=== PATIENT | female | born 1990 | race Caucasian/White ===

== ENCOUNTER 2017-04-05 13:33 | Emergency (ER) | payer MEDICAID ==
[~2017-04-05] VITALS: Ht 167.6 cm; Wt 89.4 kg
[2017-04-05 13:38] VITALS: BP 143/113
--- NOTE | 2017-04-05 14:14 | NUR ---
Patient transferred to bed 7 via wheelchair by tech. RN evaluating patient at bedside.
[2017-04-05] MEDS ORDERED: KETOROLAC 60 MG/2 ML VIAL IM ONE (14:15)
[2017-04-05] MEDS ORDERED: ONDANSETRON 4 MG ODT PO ONE (14:15)
--- NOTE | 2017-04-05 14:20 | NUR ---
PATIENT BIB FAMILY C/O LEFT UPPER QUADRANT ABDOMINAL PAIN WITH N/V AND DIARRHEA X 5 DAYS AGO.SKIN IS PINK/WARM/DRY; AAOX4 WITH EVEN AND STEADY GAIT; LUNGS CLEAR BL; HR EVEN AND REGULAR; PT DENIES ANY FEVER, CP, SOB, OR COUGH AT THIS TIME; PATIENT STATES PAIN OF 8/10 AT THIS TIME; PATIENT POSITIONED FOR COMFORT; HOB ELEVATED; BEDRAILS UP X2; BED DOWN. ER MD MADE AWARE OF PT STATUS.
[2017-04-05] MEDS ORDERED: MORPHINE SULFATE 4 MG/ML SYR IVP ONE (14:55)
[2017-04-05] MEDS ORDERED: ONDANSETRON 4 MG/2 ML VIAL IVP ONE (14:55)
--- NOTE | 2017-04-05 15:20 | NUR ---
PT STILL C/O PAIN;FACIAL GRIMMACING NOTED;ER MD NOTED;
--- NOTE | 2017-04-05 15:42 | NUR ---
Patient discharged with v/s stable. Written and verbal after care instructions given and explained. Patient alert, oriented and verbalized understanding of instructions. Ambulatory with steady gait. All questions addressed prior to discharge. ID band removed. Patient advised to follow up with PMD. Rx of IMODIUM,NORCO,ZOFRAN AND CIPRO given. Patient educated on indication of medication including possible reaction and side effects. Opportunity to ask questions provided and answered.
[2017-04-05 15:44] VITALS: BP 142/95
== END 2017-04-05 15:42 | disposition home or self-care (01) ==
LOC: MED 13:33
DX: R10.12 Left upper quadrant pain (principal); R11.2 Nausea with vomiting, unspecified; R19.7 Diarrhea, unspecified; R50.9 Fever, unspecified; Z90.89 Acquired absence of other organs
CPT/HCPCS: 81002; 81025; 96372; 96374; 96375; 99284; J1885; J2270; J2405; S0119

== ENCOUNTER 2017-05-22 00:20 | Emergency (ER) | payer MEDICAID ==
[~2017-05-22] VITALS: Ht 170.2 cm; Wt 77.1 kg
--- NOTE | 2017-05-22 00:20 | NUR ---
PT NETO BLS. TAKEN TO BED 6
[2017-05-22 00:24] VITALS: BP 139/81
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
--- NOTE | 2017-05-22 00:36 | NUR ---
Dr. Brar evaluating patient at bedside.
[2017-05-22] MEDS ORDERED: LORazepam 2 MG/ML VIAL IM ONE ×2 (00:40→01:00)
[2017-05-22] MEDS ORDERED: diphenhydrAMINE 50 MG/ML VIAL IM ONE (00:40)
[2017-05-22] MEDS ORDERED: HALOPERIDOL IM 5 MG/ML VIAL IM ONE (00:40)
--- NOTE | 2017-05-22 01:27 | NUR ---
Dr. Brar re-evaluating patient at bedside.
--- NOTE | 2017-05-22 01:44 | NUR ---
PT RESTING IN BED. NO ACUTE DISTRESS NOTED. SITTER AT BED SIDE.
--- NOTE | 2017-05-22 03:00 | NUR ---
PT SLEEPING. NO ACUTE DISTRESS NOTED. WILL CONTINUE TO MONITOR.
--- NOTE | 2017-05-22 04:00 | NUR ---
PT SLEEPING AT THIS TIME. NO ACUTE DISTRESS NOTED. WILL CONTINUE TO MONITOR.
--- NOTE | 2017-05-22 05:00 | NUR ---
PT SLEEPING AND VS STABLE. WILL CONTINUE TO MONITOR
--- NOTE | 2017-05-22 06:00 | NUR ---
PT SLEEPING AND VS STABLE. WILL CONTINUE TO MONITOR.
--- NOTE | 2017-05-22 07:24 | NUR ---
REPORT GIVEN TO MORNING RN. PT SLEEPING AT THIS TIME VS STABLE.
--- NOTE | 2017-05-22 08:32 | NUR ---
PT ATTEMPTED TO BE WALKED BY JUAN GAYLE, PT HAS UNSTABLE GAIT, WALK BACK TO BED, WILL CONTINUE TO MONITOR
--- NOTE | 2017-05-22 09:20 | NUR ---
PT SLEEPING COMFORTABLY, NO C/O PAIN OR ACUTE DISTRESS NOTED AT THIS TIME, VSS, WILL CONTINUE TO MONITOR
--- NOTE | 2017-05-22 09:27 | NUR ---
PT ATTEMPTED TO WALK BY JUAN GAYLE, PT STILL SLEEPY WITH UNSTEADY GAIT, PLACED BACK ON BED, WILL CONTINUE TO MONITOR
--- NOTE | 2017-05-22 09:51 | NUR ---
PT WAS ABLE TO AMBULATE WITH STEADY GAIT TO THE RESTROO, [place] [employer] NOTIFIED BY JUAN NEWSOME,
--- NOTE | 2017-05-22 10:23 | NUR ---
TWO [place] [employer] AT BEDSIDE; PER CONVERSATION BY JUAN NEWSOME TO PT'S GIRLFRIEND KERVIN, BELONGINGS GIVEN LAST NIGHT TO [place] [employer], PANTS PROVIDED TO PT FROM SECURITY, PT AMBULATORY HANDCUFFED TAKEN BY JAC PARMAR
--- NOTE | 2017-05-22 10:28 | NUR ---
Patient discharged with v/s stable. Written and verbal after care instructions given and explained. Patient verbalized understanding. Ambulatory with in custody. All questions addressed prior to discharge. Advised to follow up with PMD.
[2017-05-22 10:29] VITALS: BP 102/61
== END 2017-05-22 10:28 ==
LOC: MED 00:20
DX: Z02.89 Encounter for other administrative examinations (principal); R41.82 Altered mental status, unspecified; F10.129 Alcohol abuse with intoxication, unspecified; F91.9 Conduct disorder, unspecified
CPT/HCPCS: 96372; 99284; J1200; J1630; J2060

== ENCOUNTER 2019-07-20 23:14 | Emergency (ER) | payer MEDICAID ==
[~2019-07-20] VITALS: Ht 170.2 cm; Wt 83.0 kg
[2019-07-20 23:30] VITALS: BP 11/76
--- NOTE | 2019-07-20 23:39 | NUR ---
PT AMBULATED TO LOBBY WITH VSS
--- NOTE | 2019-07-21 00:35 | NUR ---
PT AMBULATED TO ER BED 03
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
[2019-07-21] MEDS ORDERED: LIDOCAINE/EPI 1% 1:100000 20 ML VIAL INJ ONE (01:25)
[2019-07-21] MEDS ORDERED: LIDOCAINE/EPI 2% 1:100000 20 ML VIAL INJ ONE (01:29)
[2019-07-21] MEDS ORDERED: LIDOCAINE/EPI MPF 2%1:200000 10 ML VIAL INJ ONE (01:30)
--- NOTE | 2019-07-21 01:42 | NUR ---
gave lidocaine/epi mpf 2% to md edmondson per procedure to admin.
--- NOTE | 2019-07-21 01:48 | NUR ---
noadhere dressing and coflex applied by alexi kinney.
[2019-07-21] MEDS ORDERED: cefTRIAXone 1,000 MG VIAL ONE (01:55)
[2019-07-21] MEDS ORDERED: cefTRIAXone 1,000 MG in LIDOCAINE MPF 1% 2.1 ML IM ONE (01:55)
[2019-07-21] MEDS ORDERED: LIDOCAINE MPF 1% 5 ML ONE (01:55)
--- NOTE | 2019-07-21 02:05 | NUR ---
admin rochepin in xylocaine im route.
[2019-07-21 02:17] VITALS: BP 111/76
--- NOTE | 2019-07-21 02:17 | NUR ---
dr edmondson did discharge teaching and med education on pt. all questions and concerns were answered.
== END 2019-07-21 02:17 | disposition home or self-care (01) ==
LOC: MED 23:14
DX: S60.351A Superficial foreign body of right thumb, initial encounter (principal); W45.8XXA Other foreign body or object entering through skin, initial encounter; Y93.89 Activity, other specified; Y92.89 Other specified places as the place of occurrence of the external cause; Y99.8 Other external cause status
CPT/HCPCS: 64450; 96372; 99284; J0696; J2001; 99283

== ENCOUNTER 2021-01-26 22:08 | Emergency (ER) | payer MEDICAID ==
[~2021-01-26] VITALS: Ht 170.2 cm; Wt 93.4 kg
[2021-01-26 22:37] VITALS: BP 147/81
[2021-01-27] MEDS ORDERED: BUPIVACAINE-MPF 0.5% 30 ML VIAL INJ ONE (01:00)
[2021-01-27] MEDS ORDERED: HYDROcodone/APAP 5/325 MG 1 TAB TAB PO ONE (01:00)
[2021-01-27] MEDS ORDERED: CLIN300C6 PO (03:19)
[2021-01-27] MEDS ORDERED: HYDR-5080 PO ×2 (03:37→03:40)
[2021-01-27 03:42] VITALS: BP 147/81
== END 2021-01-27 03:42 | disposition home or self-care (01) ==
LOC: MED 22:08
DX: K04.01 Reversible pulpitis (principal)
CPT/HCPCS: 99283; J3490

== ENCOUNTER 2021-03-18 01:35 | Emergency (ER) | payer MEDICAID ==
[~2021-03-18] VITALS: Ht 170.2 cm; Wt 95.3 kg
[~2021-03-18 01:35] MED LIST: CLIN300C6 PO; HYDR-5080 PO
[2021-03-18 02:10] VITALS: BP 116/79
--- NOTE | 2021-03-18 02:13 | NUR ---
TO LOBBY A/W BED AMBULATORY
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
--- NOTE | 2021-03-18 02:40 | NUR ---
TO ER BED 1
[2021-03-18] MEDS ORDERED: LIDOCAINE MPF 1% 10 MG/ML VIAL INJ ONE (02:45)
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
[2021-03-18] MEDS ORDERED: CEPH-588 PO (03:33)
--- NOTE | 2021-03-18 03:45 | NUR ---
dPatient discharged with v/s stable. Written and verbal after care instructions given and explained. Patient alert, oriented and verbalized understanding of instructions. Ambulatory with steady gait. All questions addressed prior to discharge. ID band removed. Patient advised to follow up with PMD. Rx of keflex given. Patient educated on indication of medication including possible reaction and side effects. Opportunity to ask questions provided and answered.
[2021-03-18] MEDS ORDERED: ACETAMINOPHEN EXTRA STRENGTH 500 MG TAB ONE (03:58)
[2021-03-18] MEDS ORDERED: ACETAMINOPHEN EXTRA STRENGTH 500 MG TAB PO ONE (04:00)
[2021-03-18 06:36] VITALS: BP 123/60
== END 2021-03-18 03:45 | disposition home or self-care (01) ==
LOC: MED 01:35
DX: S70.351A Superficial foreign body, right thigh, initial encounter (principal); Z79.899 Other long term (current) drug therapy; W45.8XXA Other foreign body or object entering through skin, initial encounter; Y93.89 Activity, other specified; Y92.89 Other specified places as the place of occurrence of the external cause; Y99.8 Other external cause status
CPT/HCPCS: 99283; J2001

== ENCOUNTER 2021-04-07 01:05 | Emergency (ER) | payer MEDICAID ==
[~2021-04-07] VITALS: Ht 170.2 cm; Wt 98.9 kg
[~2021-04-07 01:05] MED LIST changes: +CEPH-588 PO
[2021-04-07 01:12] VITALS: BP 136/95
[2021-04-07] MEDS ORDERED: MORPHINE SULFATE 4 MG/ML SYR IM ONE ×2 (02:00→03:55)
[2021-04-07] MEDS ORDERED: KETOROLAC 60 MG/2 ML VIAL IM ONE (02:00)
--- NOTE | 2021-04-07 02:02 | NUR ---
PT AMBULATED TO BED #8
--- NOTE | 2021-04-07 02:10 | NUR ---
COVERING PRIMARY RN FOR LUNCH RELIEF. SEE COMPLETE ASSESSMENT
--- NOTE | 2021-04-07 02:13 | NUR ---
PT TAKEN TO CT VIA HARISH
--- NOTE | 2021-04-07 02:29 | NUR ---
PT RETURNED FROM CT VIA [facility]
--- NOTE | 2021-04-07 02:55 | NUR ---
PATIENT LAYING IN BED IN L LATERAL POSITION W X1 SIDE RAIL UP. BREATHING EVEN AND UNLABORED. PATIENT REPORTS ONGOING 10/10 LOWER BACK PAIN W SPASM TO R LEG. PATIENT REPORTS SHE IS ABLE TO AMBULATE BUT W PAIN . PATIENT DENIES LOSS OF CONTROL OVER BOWEL OR BLADDER. DENIES FEVERS, NAUSEA OR DIZZYNESS. PROVIDED PATIENT WITH FOLDED BLANKETS TO REST HER BACK ON FOR COMFORT MEASURES. WILL RE-ASSESS PAIN.
--- NOTE | 2021-04-07 03:55 | NUR ---
PATIENT C/O OF 10 LOWER BACK PAIN. ERMD AWARE. NEW ORDERS FOR PAIN MED PER ERMD.
[2021-04-07] MEDS ORDERED: NAPR-54 PO (04:00)
[2021-04-07 04:22] VITALS: BP 127/64
--- NOTE | 2021-04-07 04:22 | NUR ---
Patient discharged with v/s stable BY . Written and verbal after care instructions given and explained BY . Patient alert, oriented and verbalized understanding of instructions. Wheel Chair Assisted TO LOBBY, AMBULATORY with steady gait TO CAR. All questions addressed prior to discharge. ID band removed. Patient advised to follow up with PMD. Rx of NAPROXEN given. Patient educated on indication of medication including possible reaction and side effects. Opportunity to ask questions provided and answered BY .
== END 2021-04-07 04:22 | disposition home or self-care (01) ==
LOC: MED 01:05
DX: S33.5XXA Sprain of ligaments of lumbar spine, initial encounter (principal); M48.061 Spinal stenosis, lumbar region without neurogenic claudication; M48.08 Spinal stenosis, sacral and sacrococcygeal region; Z79.899 Other long term (current) drug therapy; Z90.49 Acquired absence of other specified parts of digestive tract; W18.30XA Fall on same level, unspecified, initial encounter; Y93.89 Activity, other specified; Y92.89 Other specified places as the place of occurrence of the external cause; Y99.8 Other external cause status
CPT/HCPCS: 72131; 96372; 99284; J1885; J2270

== ENCOUNTER 2021-04-27 23:28 | Emergency (ER) | payer MEDICAID ==
[~2021-04-27] VITALS: Ht 170.2 cm; Wt 97.5 kg
[~2021-04-27 23:28] MED LIST changes: -CLIN300C6 PO; +CLIN300C61 PO; +NAPR-54 PO
[2021-04-27 23:33] VITALS: BP 133/92
--- NOTE | 2021-04-27 23:33 | NUR ---
TO BED VIA WHEELCHAIR
[2021-04-28] MEDS ORDERED: NACL 0.9% 1,000 ML IV ONE (00:10)
[2021-04-28] MEDS ORDERED: ONDANSETRON 4 MG/2 ML VIAL IVP ONE (00:10)
[2021-04-28] MEDS ORDERED: MORPHINE SULFATE 4 MG/ML SYR IVP ONE (00:10)
--- NOTE | 2021-04-28 00:15 | NUR ---
BLOOD DRAWN VIA IV START AND HANDED TO KENYATTA HOOKER OFF.
[2021-04-28 00:31] LABS: BASOPHILS % (AUTO) 0.4 % (0.0-2.0); EOSINOPHILS % (AUTO) 0.2 % (0.0-4.0); HEMATOCRIT 43.6 % (36-48); HEMOGLOBIN 14.9 g/dL (12.0-16.0); LYMPHOCYTES # (AUTO) 1.6 K/uL (2.5-16.5); LYMPHOCYTES % (AUTO) 14.4 % (20.5-51.1); MEAN CORPUSCULAR HEMOGLOBIN 32 pg (27-31); MEAN CORPUSCULAR HGB CONC 34 g/dL (33-37); MEAN CORPUSCULAR VOLUME 93.6 fL (80-94); MONOCYTES # (AUTO) 0.5 K/uL (0.8-1.0); MONOCYTES % (AUTO) 4.6 % (1.7-9.3); NEUTROPHILS # (AUTO) 8.9 K/uL (1.8-7.7); NEUTROPHILS % (AUTO) 80.4 % (42.2-75.2); PLATELET COUNT (AUTO) 181 K/uL (140-450); RED BLOOD CELL COUNT(AUTO) 4.66 MIL/uL (4.20-5.40); RED CELL DISTRIBUTION WIDTH 12.3 % (11.6-13.7); WHITE BLOOD COUNT (AUTO) 11.1 K/uL (4.8-10.8)
--- NOTE | 2021-04-28 00:45 | NUR ---
IV removed, catheter intact and site benign. Applied folded 4x4 gauze and tape to stop bleeding.
--- NOTE | 2021-04-28 00:46 | NUR ---
ULTRASOUND AT BEDSIDE.
[2021-04-28 00:51] LABS: ANION GAP 14.4 (8-16); CARBON DIOXIDE 26.4 mmol/L (21-32); CREATININE 0.7 mg/dL (0.6-1.3); POTASSIUM 3.8 mmol/L (3.5-5.1); TOTAL BILIRUBIN 0.4 mg/dL (0.0-1.0)
--- NOTE | 2021-04-28 01:04 | NUR ---
PATIENT PAIN STILL A 10/10 PAIN PULSATING PAIN
--- NOTE | 2021-04-28 01:08 | NUR ---
CALLED XRAY REGARDING PATIENT XRAY. PATIENT WILLING TO SIGN FORM ABOUT NOT BEING WITHOUT URINE
--- NOTE | 2021-04-28 01:55 | NUR ---
PT C/O UNRESOLVED PAIN. DR. BASS MADE AWARE. VERBAL ORDER FRO TORADOL 30MG IVP GIVEN, ORDER CARRIED OUT.
[2021-04-28] MEDS ORDERED: KETOROLAC 30 MG/ML VIAL ONE (01:59)
[2021-04-28] MEDS ORDERED: KETOROLAC 30 MG/ML VIAL IVP ONE (02:00)
--- NOTE | 2021-04-28 02:20 | NUR ---
Provided patient with 2 boxes of COLE
[2021-04-28] MEDS ORDERED: CLINDAMYCIN 900 MG in DEXTROSE 5% 100 ML IV ONE ×2 (02:40→03:05)
--- NOTE | 2021-04-28 02:44 | NUR ---
ermd at bedside for re-examination of patient.
[2021-04-28] MEDS ORDERED: CLINDAMYCIN 900 MG/6 ML VIAL IV ONE (03:21)
[2021-04-28] MEDS ORDERED: ACET-8386 PO (03:21)
[2021-04-28] MEDS ORDERED: CLIN150C1 PO (03:21)
[2021-04-28] MEDS ORDERED: IBUP-2213 PO (03:21)
--- NOTE | 2021-04-28 03:40 | NUR ---
PT ASSISTED TO RESTROOM VIA W.C.
[2021-04-28] MEDS ORDERED: HYDROcodone/APAP 10/325 MG 1 TAB TAB PO ONE (04:20)
--- NOTE | 2021-04-28 05:03 | NUR ---
IV removed, catheter intact and site benign. Applied folded 4x4 gauze and tape to stop bleeding.
[2021-04-28 05:06] VITALS: BP 126/76
--- NOTE | 2021-04-28 05:06 | NUR ---
Patient discharged with v/s stable. Written and verbal after care instructions given and explained. Patient alert, oriented and verbalized understanding of instructions. Wheel Chair Assisted with by EMT. All questions addressed prior to discharge. ID band removed. Patient advised to follow up with PMD. Rx of hydrocodon-acetaminophen 5-325, Cleocin hcl, and ibuprofen given. Patient educated on indication of medication including possible reaction and side effects. Opportunity to ask questions provided and answered.
== END 2021-04-28 05:06 | disposition home or self-care (01) ==
LOC: MED 23:28
DX: L03.116 Cellulitis of left lower limb (principal); Z90.49 Acquired absence of other specified parts of digestive tract; W86.8XXA Exposure to other electric current, initial encounter; Y93.89 Activity, other specified; Y92.89 Other specified places as the place of occurrence of the external cause; Y99.8 Other external cause status
CPT/HCPCS: 36415; 73700; 80053; 82550; 84484; 85025; 93005; 93971; 96361; 96365; 96375; 99285; J1885; J2270; J2405; J3490; J7030; Q0092

== ENCOUNTER 2021-04-29 12:06 | Inpatient (IN) | payer MEDICAID, SELFPAY ==
[~2021-04-29] VITALS: Ht 170.2 cm; Wt 97.5 kg
[~2021-04-29 12:06] MED LIST changes: +ACET-8386 PO; +CLIN150C1 PO; +CLIN300C6 PO; -CLIN300C61 PO; +IBUP-2213 PO
[2021-04-29 12:31] VITALS: BP 117/71
--- NOTE | 2021-04-29 12:47 | NUR ---
Patient W/C assisted to bed 03.
--- NOTE | 2021-04-29 12:52 | NUR ---
Dr. Londono is evaluating patient at bedside
[2021-04-29] MEDS ORDERED: MORPHINE SULFATE 4 MG/ML SYR IVP ONE (12:55)
[2021-04-29] MEDS ORDERED: VANCOMYCIN 1,000 MG in DEXTROSE 5% 250 ML IV ONE (12:55)
[2021-04-29] MEDS ORDERED: NACL 0.9% 1,000 ML IV ONE (12:55)
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
[2021-04-29] MEDS ORDERED: cefTRIAXone 1,000 MG VIAL ONE (13:03)
[2021-04-29] MEDS ORDERED: MORPHINE SULFATE 4 MG/ML SYR ONE (13:04)
--- NOTE | 2021-04-29 13:18 | NUR ---
US tech at bedside
--- NOTE | 2021-04-29 13:28 | NUR ---
Blood cultures and sample collected, handed to CPT Neva at ER bedside.
--- NOTE | 2021-04-29 13:33 | NUR ---
RAD at bedside
[2021-04-29] MEDS ORDERED: VANCOMYCIN 1,000 MG VIAL ONE (13:47)
--- NOTE | 2021-04-29 13:52 | NUR ---
PT SWABBED FOR COVID AND SPECIMEN WALKED TO LAB
[2021-04-29 14:03] LABS: BASOPHILS % (AUTO) 0.3 % (0.0-2.0); EOSINOPHILS # (AUTO) 0.1 K/uL (0-0.4); EOSINOPHILS % (AUTO) 0.6 % (0.0-4.0); HEMATOCRIT 37.4 % (36-48); HEMOGLOBIN 12.9 g/dL (12.0-16.0); LYMPHOCYTES # (AUTO) 1.8 K/uL (2.5-16.5); LYMPHOCYTES % (AUTO) 12.1 % (20.5-51.1); MEAN CORPUSCULAR HEMOGLOBIN 32 pg (27-31); MEAN CORPUSCULAR HGB CONC 34 g/dL (33-37); MEAN CORPUSCULAR VOLUME 92.8 fL (80-94); MONOCYTES % (AUTO) 6.9 % (1.7-9.3); NEUTROPHILS % (AUTO) 80.1 % (42.2-75.2); PLATELET COUNT (AUTO) 134 K/uL (140-450); RED BLOOD CELL COUNT(AUTO) 4.03 MIL/uL (4.20-5.40); RED CELL DISTRIBUTION WIDTH 12.7 % (11.6-13.7)
[2021-04-29 14:25] LABS: ALBUMIN 3.9 g/dL (3.4-5.0); ANION GAP 14.2 (8-16); CARBON DIOXIDE 25.7 mmol/L (21-32); CREATININE 0.7 mg/dL (0.6-1.3); POTASSIUM 3.9 mmol/L (3.5-5.1); TOTAL BILIRUBIN 0.7 mg/dL (0.0-1.0)
[2021-04-29] MEDS ORDERED: KETOROLAC 30 MG/ML VIAL ONE (14:48)
[2021-04-29] MEDS ORDERED: KETOROLAC 30 MG/ML VIAL IVP PRN (14:50)
[2021-04-29] MEDS ORDERED: MORPHINE SULFATE 2 MG/ML SYR IVP PRN (14:50)
--- NOTE | 2021-04-29 15:05 | NUR ---
Patient disconnected from telemetry monitor and IVF and ambulated to restroom with walker.
--- NOTE | 2021-04-29 15:15 | NUR ---
Patient back to bed and playground monitor/IVF continued. Bed locked in lowest position, side rails x 1, call light in reach.
[2021-04-29] MEDS ORDERED: LORazepam 2 MG/ML VIAL IM/IVP PRN (16:10)
[2021-04-29] MEDS ORDERED: ZOLPIDEM 5 MG TAB PO PRN (16:10)
[2021-04-29] MEDS ORDERED: POTASSIUM CHLORIDE 10 MEQ TABER PO PRN (16:10)
[2021-04-29] MEDS ORDERED: ONDANSETRON 4 MG/2 ML VIAL IVP PRN (16:10)
[2021-04-29] MEDS ORDERED: MAG SULF 2000 MG/WATER PREMIX 50 ML IV PRN (16:10)
[2021-04-29] MEDS ORDERED: DOCUSATE SODIUM 100 MG GELCAP PO PRN (16:10)
[2021-04-29] MEDS ORDERED: SODIUM PHOS / POTASSIUM PHOS 1 PKT PDR PO PRN (16:10)
--- NOTE | 2021-04-29 16:15 | NUR ---
Report given to DEMETRIS Perea.
--- NOTE | 2021-04-29 16:15 | NUR ---
Patient will be admitted to care of Dr. Yeung. Admited to Telemetry. Will go to room 105-B Belongings list completed. Report to Price (suri)Leroy RN.
--- NOTE | 2021-04-29 16:20 | NUR ---
RECEIVED PATIENT REPORT FROM ER NURSE. AWAITING FOR PT TO ARRIVE TO THE UNIT
[2021-04-29 16:40] VITALS: BP 119/71
--- NOTE | 2021-04-29 16:40 | NUR ---
RECEIVED PATIENT FROM ER NURSE. PT ADMITTED FOR CELLULITIS LOWER LEFT EXTREMITY. PT IS STABLE, ABLE TO MAKE NEEDS KNOWN. RESPIRATIONS EVEN AND UNLABORED. ON ROOM AIR AND NOT DISTRESS NOTED. SKIN IS WARM, DRY, AND INTACT. IV SITE ON LH 22G SALINE FLUSHED. INTACT AND PATENT. ABD SOFT, FLAT, AND NON-DISTENDED. BOWEL SOUNDS ACTIVE IN ALL QUADRANT. COMPLAINS OF 9/10 LOWER LEG PAIN. WILL MEDICATE ORDERED PLAN OF CARE DISCUSSED. SAFETY PRECAUTION IN PLACE. CALL LIGHT WITHIN REACH. WILL CONTINUE TO MONITOR.
[2021-04-29] MEDS: NACL 0.9% 1,000 ML IV SCH (16:49)
[2021-04-29 16:52] LABS: CHOL/HDL RATIO 2.6 (1-4.5); FREE T4 (FREE THYROXINE) 0.85 ng/dL (0.76-1.46); PHOSPHORUS 3.9 mg/dL (2.5-4.9); THYROID STIMULATING HORMONE 10.89 uIU/mL (0.34-3.74)
[2021-04-29 17:02] LABS: PROTHROMBIN TIME 10.6 secs (10.8-13.4)
[2021-04-29] MEDS: HYDROcodone/APAP 5/325 MG 1 TAB TAB PO PRN (18:08)
[2021-04-29] MEDS ORDERED: VANCOMYCIN PER PHARMACY MC PRN (18:15)
--- NOTE | 2021-04-29 18:33 | NUR ---
DR. QUINONES AT BEDSIDE ASSESSING PATIENT. DISCUSSED CT W/ CONTRAST PROCEDURE WITH PATIENT. PATIENT VERBALIZED UNDERSTANDING. WITNESSED BOTH MD AND PATIENT SIGN CONSENT FORM.
--- NOTE | 2021-04-29 19:00 | NUR ---
INSERTED RAC 20G FOR CT W/ CONTRAST. INTACT AND PATENT. SALINE LOCKED
[2021-04-29 21:00] VITALS: BP 142/78
[2021-04-29] MEDS: PIPERACILLIN/TAZOBACTAM 3.375 GM in DEXTROSE 5% 50 ML IV SCH (21:21)
[2021-04-29] MEDS: MORPHINE SULFATE 2 MG/ML SYR IVP PRN (22:12)
[2021-04-29] MEDS: VANCOMYCIN 1,500 MG in DEXTROSE 5% 500 ML IV SCH (22:39)
[2021-04-29 23:06] VITALS: BP 142/76
[2021-04-30] VITALS: BP 135/72
[2021-04-30] MEDS: HYDROcodone/APAP 5/325 MG 1 TAB TAB PO PRN ×3 (01:56→17:39)
[2021-04-30] MEDS: NACL 0.9% 1,000 ML IV SCH ×3 (03:30→22:10)
--- NOTE | 2021-04-30 03:43 | NUR ---
THE PATIENT WAS ADMITTED FOR LEFT LEG CELLULITIS, , MORPHINE 2 MG IV AND NARCO WAS ADMINISTERED FOR PAIN MANAGEMENT , SHE SLEEPS COMFOTABEL IN HER BED , PATINET WAS ASSITED TO THE BATHROOM. COMFORT AND SAFETY MEASURES ARE PROVIDED.
[2021-04-30 04:04] VITALS: BP 125/78
[2021-04-30] MEDS: PIPERACILLIN/TAZOBACTAM 3.375 GM in DEXTROSE 5% 50 ML IV SCH ×3 (05:31→20:47)
[2021-04-30] MEDS: ACETAMINOPHEN 325 MG TAB PO PRN ×3 (05:31→23:20)
[2021-04-30 06:29] LABS: BASOPHILS % (AUTO) 0.3 % (0.0-2.0); EOSINOPHILS # (AUTO) 0.2 K/uL (0-0.4); EOSINOPHILS % (AUTO) 1.8 % (0.0-4.0); HEMATOCRIT 35.1 % (36-48); HEMOGLOBIN 11.9 g/dL (12.0-16.0); LYMPHOCYTES # (AUTO) 1.4 K/uL (2.5-16.5); LYMPHOCYTES % (AUTO) 15.8 % (20.5-51.1); MEAN CORPUSCULAR HEMOGLOBIN 32 pg (27-31); MEAN CORPUSCULAR HGB CONC 34 g/dL (33-37); MEAN CORPUSCULAR VOLUME 94.5 fL (80-94); MONOCYTES # (AUTO) 0.9 K/uL (0.8-1.0); MONOCYTES % (AUTO) 10.1 % (1.7-9.3); NEUTROPHILS # (AUTO) 6.6 K/uL (1.8-7.7); PLATELET COUNT (AUTO) 133 K/uL (140-450); RED BLOOD CELL COUNT(AUTO) 3.71 MIL/uL (4.20-5.40); RED CELL DISTRIBUTION WIDTH 12.6 % (11.6-13.7); WHITE BLOOD COUNT (AUTO) 9.1 K/uL (4.8-10.8)
[2021-04-30 07:00] LABS: ALBUMIN 3.1 g/dL (3.4-5.0); CARBON DIOXIDE 26.7 mmol/L (21-32); CREATININE 0.6 mg/dL (0.6-1.3); POTASSIUM 3.7 mmol/L (3.5-5.1); TOTAL BILIRUBIN 0.3 mg/dL (0.0-1.0)
--- NOTE | 2021-04-30 07:21 | NUR ---
RECEIVED REPORT FROM QUARANTINE INSPECTOR NURSE FOR CONTINUITY OF CARE, POC DISCUSSED. PT IS STABLE IN BED WITH NO ACUTE S/S OF DISTRESS. PT IS ALERT AND ORIENTED X4, ON ROOM AIR WITH CHEST RISING AND FALLING EVEN AND UNLABORED. PT IS ON TELE MONITOR. LEFT LOWER EXTREMITY MARKED. PT HAS A RIGHT AC 20 G AND A LEFT HAND 22G RUNNING NS @ 100. ALL SAFETY MEASURES IN PLACE, CALL LIGHT WITHIN REACH. WILL CONTINUE TO MONITOR.
[2021-04-30 08:00] VITALS: BP 111/61
--- NOTE | 2021-04-30 10:04 | NUR ---
CATHLEEN MEDICATION ADMINISTERED PT EDUCATION PROVIDED. PT TOLERATED. PT IV IS PATENT AND INTACT. PRN PAIN MEDICATION ADMINISTERED PER MD ORDER.
[2021-04-30] MEDS: VANCOMYCIN 1,500 MG in DEXTROSE 5% 500 ML IV SCH ×2 (10:06→21:36)
--- NOTE | 2021-04-30 10:45 | NUR ---
PATIENT HAS BEEN SCREENED AND CATEGORIZED LOW NUTRITION RISK. PATIENT WILL BE SEEN WITHIN 7 DAYS OF ADMISSION. 05/07/21 REVIEWED BY JENNIFER ALBARADO RD
[2021-04-30 12:00] VITALS: BP 99/47
--- NOTE | 2021-04-30 13:48 | NUR ---
DR. PASCAL STATES NO SURGICAL INTERVENTION AT THIS TIME, DIET SWITCHED TO REGULAR PER MD ORDER
[2021-04-30] MEDS: MORPHINE SULFATE 2 MG/ML SYR IVP PRN ×2 (14:19→19:58)
--- NOTE | 2021-04-30 14:19 | NUR ---
PT BLOOD PRESSURE 129/89, PT REPORTS SEVERE PAIN, WILL MEDICATE PER MD ORDER.
[2021-04-30 14:41] LABS: APPEARANCE,URINE CLEAR (CLEAR); BILIRUBIN,URINE NEGATIVE (NEGATIVE); BLOOD, URINE 2+ (NEGATIVE); COLOR,URINE YELLOW (YELLOW); LEUKOCYTE ESTERASE ,URINE NEGATIVE (NEGATIVE); NITRITE, URINE NEGATIVE (NEGATIVE); UGLUCOSE NEGATIVE (NEGATIVE)
--- NOTE | 2021-04-30 14:53 | NUR ---
DC PLANNING: PATIENT HAS AN ORDER TO TRANSFER TO HIGHER LEVEL OF CARE, CALLED [place] KAUSHAL WYNN [phone] EXT [phone] LEFT A MESSAGE AND FAXED TO [facility] [phone] . FAXED TO [facility] AND [facility] . CM TO FOLLOW Addendum: 04/30/21 at 1700 by Kasie Perry RN DC PLANNING: RECEIVED A CALL FROM [facility] UPDATED PT'S CLINICAL PER RELL FERNANDO FROM [facility]. CALLED [facility] SPOKE WITH TIANNA OSHEA STATED [facility] IS NOT CONTRACTED, ONCE THEY RECEIVED THE PAPERWORK THEIR SHOCHET WILL REVIEW IT AND WILL DECIDE. DAYO TO FOLLOW
[2021-04-30 14:58] LABS: BARBITURATE, URINE NEGATIVE ng/ml (NEG <=200); BENZODIAZEPINE, URINE NEGATIVE ng/mL (NEG <=200); CANNABINOID, URINE POSITIVE ng/mL (NEG <=50); COCAINE, URINE NEGATIVE ng/mL (NEG <=300); OPIATE, URINE POSITIVE ng/mL (NEG <=2000); PHENCYCLIDINE SCREEN,URINE NEGATIVE ng/mL (NEG <=25)
[2021-04-30 15:11] LABS: RBC,URINE 20-50 /HPF (0-5); WBC,URINE 0-5 /HPF (0-5)
[2021-04-30 16:00] VITALS: BP 103/61
--- NOTE | 2021-04-30 17:41 | NUR ---
PRN PAIN MEDICATION ADMINISTERED PER MD ORDER, PT EDUCATION PROVIDED. IV INTACT. ALL NEEDS MET, CALL LIGHT WITHIN REACH. CALL LIGHT WITHIN REACH.
--- NOTE | 2021-04-30 18:10 | NUR ---
PT PROVIDED WITH WIPES PER PT REQUEST. ALL SAFETY MEASURES IN PLACE, CALL LIGHT WITHIN REACH. WILL CONTINUE TO MONITOR.
--- NOTE | 2021-04-30 19:00 | NUR ---
PT HAS BEEN ENDORSED TO VOCATIONAL SERVICES SPECIALIST NURSE FOR CONTINUITY OF CARE, POC DISCUSSED. PT IN STABLE CONDITION.
--- NOTE | 2021-04-30 19:15 | NUR ---
RECEIVED REPORT AT BEDSIDE.PT'S CONDITION STABLE.AWAKE,ALERT AND ORIENTED.RESP.UNLABORED IN RA.IVF INFUSING WELL VIA IV LINE IN RT AN W/#2O G W/O REDNESS OR EDEMA AT SITE. SL PATENT IN LT. HAND W/ #22G. PT REQUESTED TO TAKE THAT OUT.HAS EDEMA ON LT.LEG THAT MARKED.LT.LEG ELEVATED ON PILLOW.CALL LIGHT WITHIN REACH.WILL CONT.MONITORING.
[2021-04-30 20:00] VITALS: BP 113/73
[2021-05-01] MEDS: PENICILLIN POTASSIUM MU IV SCH ×6 (00:45→20:43)
[2021-05-01] MEDS: DEXTROSE IV SCH ×6 (00:45→20:43)
[2021-05-01] MEDS: MORPHINE SULFATE 2 MG/ML SYR IVP PRN ×6 (01:02→23:00)
--- NOTE | 2021-05-01 01:30 | NUR ---
CALLED.HE DISCONTINUED ZOSYN ANS VANCOMYCIN AND ORDERED PENICILLIN [id number] UNITS IV Q4H.MEDS WAS NOT AVAILABLE CALLED BACK IF WE CAN START FROM AM.HE SAID NEEDS TO START TONIGHT.SO PHARMACIST CREW MANAGER NOTIFIED BY HS.HE CAME AND MIX IT FOR US.1ST DOSE GIVEN.PT TOLERATED WELL.WILL CONTINUE Q4H.ALSO HE MADE 2 BAGS FOR 05/01/21 MN.1ST ONE GIVEN ,2ND ONE IS IN THE FRIGE.
[2021-05-01 04:00] VITALS: BP 101/67
--- NOTE | 2021-05-01 06:34 | NUR ---
SLEPT WELL.2ND DOSE OF PENICILLIN GIVEN PT TOLERATED WELL WELL.PAIN MED GIVEN EARLIER.NO C/O PAIN NOW.
[2021-05-01 07:10] LABS: BASOPHILS % (AUTO) 0.4 % (0.0-2.0); EOSINOPHILS # (AUTO) 0.1 K/uL (0-0.4); HEMATOCRIT 34.5 % (36-48); HEMOGLOBIN 11.8 g/dL (12.0-16.0); MEAN CORPUSCULAR HEMOGLOBIN 32 pg (27-31); MEAN CORPUSCULAR HGB CONC 34 g/dL (33-37); MEAN CORPUSCULAR VOLUME 93.2 fL (80-94); MONOCYTES # (AUTO) 0.6 K/uL (0.8-1.0); MONOCYTES % (AUTO) 7.3 % (1.7-9.3); NEUTROPHILS # (AUTO) 4.9 K/uL (1.8-7.7); NEUTROPHILS % (AUTO) 64.3 % (42.2-75.2); PLATELET COUNT (AUTO) 169 K/uL (140-450); RED BLOOD CELL COUNT(AUTO) 3.71 MIL/uL (4.20-5.40); RED CELL DISTRIBUTION WIDTH 12.6 % (11.6-13.7); WHITE BLOOD COUNT (AUTO) 7.6 K/uL (4.8-10.8)
[2021-05-01 07:29] LABS: ALBUMIN 3.1 g/dL (3.4-5.0); ANION GAP 11.3 (8-16); CARBON DIOXIDE 26.6 mmol/L (21-32); CREATININE 0.6 mg/dL (0.6-1.3); MAGNESIUM 2.2 mg/dL (1.8-2.4); POTASSIUM 3.9 mmol/L (3.5-5.1); TOTAL BILIRUBIN 0.3 mg/dL (0.0-1.0)
[2021-05-01 08:00] VITALS: BP 119/69
--- NOTE | 2021-05-01 08:00 | NUR ---
RECEIVED REPORT FROM RESEARCH TECHNOLOGIST AT BEDSIDE FOR CONTINUITY OF CARE. PATIENT ALERT AWAKE ORIENTED X4, NOT IN ANY DISTRESS NOTED. WITH IVF ON GOING AND INFUSING WELL. LEFT LEG CELLULITIS, INTACT, IV ABX HANGED,WITH REDNESS NOTED. C/O PAIN ON THE SITE. CALL LIGHT WITHIN REACH. NEEDS ATTENDED. WILL CONTINUE TO MONITOR.
[2021-05-01] MEDS: NACL 0.9% 1,000 ML IV SCH ×2 (08:10→18:10)
[2021-05-01] MEDS: HYDROcodone/APAP 5/325 MG 1 TAB TAB PO PRN ×2 (08:35→20:45)
--- NOTE | 2021-05-01 10:00 | NUR ---
IV SITE INFILTRATED AND RE-INSERTED NEW IV ON THE LEFT HAND G 22. INTACT
[2021-05-01 16:00] VITALS: BP 153/81
--- NOTE | 2021-05-01 19:35 | NUR ---
PATIENT RESTING IN BED, REPORT GIVEN TO THE BALANCE BRIDGE ASSEMBLER FOR CONTINUITY OF CARE. IN STABLE CONDITION.
--- NOTE | 2021-05-01 20:00 | NUR ---
PATIENT WAS RECEIVED IN BED ALERT AND COHERENT, NO RESPIRATORY DISTRESS, C/O PAIN IN HER LEFT LOWER EXTREMITY 03/09, BUT MORPHINE IS NOT DUE AT THIS TIME YET. IT ABOUT 2 HOURS AWAY FROM THE NEXT DOSE. PATIENT WAS THEN OFFERED NORCO 5/325 MG FOR NOW. PATIENT AGREED.
--- NOTE | 2021-05-01 20:30 | NUR ---
MEDICATED WITH NORCO 5/325 MG, SOMEHOW HELPED, PAIN LEVEL WENT DOWN TO A TOLERABLE LEVEL OF 3/10.
[2021-05-01] MEDS: CLINDAMYCIN 600 MG in DEXTROSE 5% 50 ML IV SCH (21:03)
--- NOTE | 2021-05-01 22:34 | NUR ---
ALL DUE MEDS WERE GIVEN VIA IVPB MORPHINE DOSE WAS GIVEN TOLERATED WELL, PAIN WAS RESOLVED AFTER 30 MINUTES.
--- NOTE | 2021-05-02 | NUR ---
DUE PEN G IVPB WAS GIVEN TOLERATED WELL, PATIENT WAS ASLEEP.
[2021-05-02] MEDS: PENICILLIN POTASSIUM MU IV SCH ×4 (00:28→12:19)
[2021-05-02] MEDS: DEXTROSE IV SCH ×4 (00:28→12:19)
--- NOTE | 2021-05-02 02:00 | NUR ---
PATIENT WAS CALMLY ASLEEP WITH REGULAR BREATHING PATTERN.
[2021-05-02] MEDS: MORPHINE SULFATE 2 MG/ML SYR IVP PRN ×2 (03:52→11:06)
[2021-05-02] MEDS: NACL 0.9% 1,000 ML IV SCH (03:53)
[2021-05-02 04:00] VITALS: BP 135/79
[2021-05-02] MEDS: CLINDAMYCIN 600 MG in DEXTROSE 5% 50 ML IV SCH ×2 (04:45→13:11)
--- NOTE | 2021-05-02 05:00 | NUR ---
DUE PEN G IVPB WAS GIVEN AT AM, CLINDAMYSIN IVPB AT 5 AM TOLERATED WELL, PATIENT WAS ASLEEP. V/S WNL
[2021-05-02 07:35] LABS: BASOPHILS % (AUTO) 0.6 % (0.0-2.0); EOSINOPHILS # (AUTO) 0.1 K/uL (0-0.4); EOSINOPHILS % (AUTO) 1.9 % (0.0-4.0); HEMATOCRIT 36.1 % (36-48); HEMOGLOBIN 12.3 g/dL (12.0-16.0); MEAN CORPUSCULAR HEMOGLOBIN 32 pg (27-31); MEAN CORPUSCULAR HGB CONC 34 g/dL (33-37); MEAN CORPUSCULAR VOLUME 93.2 fL (80-94); MONOCYTES # (AUTO) 0.5 K/uL (0.8-1.0); MONOCYTES % (AUTO) 9.2 % (1.7-9.3); NEUTROPHILS # (AUTO) 3.2 K/uL (1.8-7.7); NEUTROPHILS % (AUTO) 54.3 % (42.2-75.2); PLATELET COUNT (AUTO) 208 K/uL (140-450); RED BLOOD CELL COUNT(AUTO) 3.87 MIL/uL (4.20-5.40); RED CELL DISTRIBUTION WIDTH 12.6 % (11.6-13.7); WHITE BLOOD COUNT (AUTO) 5.9 K/uL (4.8-10.8)
[2021-05-02 07:37] LABS: ALBUMIN 3.3 g/dL (3.4-5.0); ANION GAP 12.4 (8-16); CARBON DIOXIDE 25.5 mmol/L (21-32); CREATININE 0.6 mg/dL (0.6-1.3); MAGNESIUM 2.2 mg/dL (1.8-2.4); POTASSIUM 3.9 mmol/L (3.5-5.1); TOTAL BILIRUBIN 0.2 mg/dL (0.0-1.0)
--- NOTE | 2021-05-02 07:39 | NUR ---
REPORTS WERE GIVEN TRANSFER OF CARE ENDORSED.
[2021-05-02 08:00] VITALS: BP 113/69
--- NOTE | 2021-05-02 08:00 | NUR ---
RECEIVED REPORT FROM DRILLER AND BROACHER FOR CONTINUITY OF CARE. PATIENT ALERT AWAKE ORIENTED X4. WITH IVF ON GOING AND INFUSING WELL. IV ABX GIVEN AND INFUSING WELL. LEFT LOWER LEG IS GETTING BETTER. WITH PAIN NOTED /. NEEDS ATTENDED. WILL CONTINUE TO MONITOR.
[2021-05-02] MEDS ORDERED: CLIN300C2 PO (10:22)
[2021-05-02] MEDS ORDERED: HYDR-5080 PO (10:22)
[2021-05-02] MEDS ORDERED: IBUP-2213 PO (10:22)
[2021-05-02] MEDS ORDERED: AMOX1TAB8 PO (10:22)
--- NOTE | 2021-05-02 11:54 | NUR ---
SEEN BY DR. FRAUSTO WITH DC ORDER. PATIENT VERBALIZED THAT IF SHE CAN HAVE CRUTCHES UPON DC. NOTIFIED DR. FRAUSTO AND PRESCRIBED. WILL CONTINUE TO MONITOR.
[2021-05-02] MEDS: HYDROcodone/APAP 5/325 MG 1 TAB TAB PO PRN (13:12)
--- NOTE | 2021-05-02 14:20 | NUR ---
DISCHARGE PATIENT TO HOME VIA WHEELCHAIR WITH DC INSTRUCTION AND PRESCRIPTION GIVEN AND VERBALIZED UNDERSTANDING. IN STABLE CONDITION.
[2021-05-02] MEDS ORDERED: PENI-321 PO (15:10)
== END 2021-05-02 14:20 | disposition home or self-care (01) | DRG 383 ==
LOC: MED 12:06 → MTU 14:52
PROVIDERS: ADMIT Family Medicine; ATTEND Family Medicine
DX: L03.116 Cellulitis of left lower limb (principal); E44.1 Mild protein-calorie malnutrition; Z20.822 Contact with and (suspected) exposure to COVID-19; E78.5 Hyperlipidemia, unspecified; Z87.891 Personal history of nicotine dependence; Z68.33 Body mass index [BMI] 33.0-33.9, adult
CPT/HCPCS: 36415; 71045; 73590; 73610; 73630; 73701; 80053; 80202; 80305; 81001; 81025; 82150; 82553; 83036; 83605; 83690; 83735; 83880; 84100; 84439; 84443; 84484; 84703; 85025; 85610; 85730; 86140; 87040; 87081; 93971; 96361; 96365; 96375; 96376; 99285; J0696; J1885; J2270; J2540; J2543; J3370; J3490; J7060; Q0092

== ENCOUNTER 2021-05-11 00:38 | Emergency (ER) | payer MEDICAID, SELFPAY ==
[~2021-05-11] VITALS: Ht 170.2 cm; Wt 99.8 kg
[~2021-05-11 00:38] MED LIST changes: -ACET-8386 PO; -CEPH-588 PO; -CLIN150C1 PO; +CLIN300C2 PO; -CLIN300C6 PO; +PENI-321 PO
[2021-05-11 00:47] VITALS: BP 144/81
--- NOTE | 2021-05-11 00:54 | NUR ---
PATIENT TO BED 7 WITH ASSISTED DEVICE.
--- NOTE | 2021-05-11 00:54 | NUR ---
PATIENT TO BED 6 WITH ASSISTED DEVICE.
--- NOTE | 2021-05-11 00:56 | NUR ---
PATIENT AMBULATED WITH ASSISTED DEVICE TO THE BATHROOM FOR URINE COLLECTION
[2021-05-11] MEDS ORDERED: NAPR-54 PO (00:58)
--- NOTE | 2021-05-11 01:03 | NUR ---
SEEN AND EXAMINED BY ASHLEY
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
[2021-05-11] MEDS ORDERED: KETOROLAC 60 MG/2 ML VIAL IM ONE (01:25)
--- NOTE | 2021-05-11 01:27 | NUR ---
PATIENT TAKEN TO CT VIA GURNEY.
[2021-05-11 01:32] LABS: BASOPHILS % (AUTO) 0.6 % (0.0-2.0); EOSINOPHILS # (AUTO) 0.2 K/uL (0-0.4); EOSINOPHILS % (AUTO) 2.5 % (0.0-4.0); HEMATOCRIT 36.9 % (36-48); HEMOGLOBIN 12.6 g/dL (12.0-16.0); LYMPHOCYTES # (AUTO) 2.6 K/uL (2.5-16.5); LYMPHOCYTES % (AUTO) 40.5 % (20.5-51.1); MEAN CORPUSCULAR HEMOGLOBIN 32 pg (27-31); MEAN CORPUSCULAR HGB CONC 34 g/dL (33-37); MEAN CORPUSCULAR VOLUME 93.8 fL (80-94); MONOCYTES # (AUTO) 0.4 K/uL (0.8-1.0); MONOCYTES % (AUTO) 6.7 % (1.7-9.3); NEUTROPHILS # (AUTO) 3.2 K/uL (1.8-7.7); NEUTROPHILS % (AUTO) 49.7 % (42.2-75.2); PLATELET COUNT (AUTO) 291 K/uL (140-450); RED BLOOD CELL COUNT(AUTO) 3.94 MIL/uL (4.20-5.40); RED CELL DISTRIBUTION WIDTH 12.5 % (11.6-13.7); WHITE BLOOD COUNT (AUTO) 6.5 K/uL (4.8-10.8)
--- NOTE | 2021-05-11 01:42 | NUR ---
PT RETURN FROM CT
[2021-05-11 01:53] LABS: ALBUMIN 3.9 g/dL (3.4-5.0); CARBON DIOXIDE 23.7 mmol/L (21-32); CREATININE 0.7 mg/dL (0.6-1.3); POTASSIUM 3.7 mmol/L (3.5-5.1); TOTAL BILIRUBIN 0.2 mg/dL (0.0-1.0)
[2021-05-11] MEDS ORDERED: MORPHINE SULFATE 4 MG/ML SYR IVP ONE (02:35)
[2021-05-11] MEDS ORDERED: MORPHINE SULFATE 4 MG/ML SYR IM ONE (02:45)
[2021-05-11] MEDS ORDERED: CEPH-588 PO (03:17)
[2021-05-11 03:25] VITALS: BP 146/81
--- NOTE | 2021-05-11 03:25 | NUR ---
Patient discharged with v/s stable. Written and verbal after care instructions given and explained. Patient alert, oriented and verbalized understanding of instructions. Ambulatory with USE OF WALKER. All questions addressed prior to discharge. ID band removed. Patient advised to follow up with PMD. Rx of given KEFLEX, NAPROXEN. Patient educated on indication of medication including possible reaction and side effects. Opportunity to ask questions provided and answered. DC DONE BY .
== END 2021-05-11 03:25 | disposition home or self-care (01) ==
LOC: MED 00:38
DX: L03.116 Cellulitis of left lower limb (principal); I87.2 Venous insufficiency (chronic) (peripheral)
CPT/HCPCS: 36415; 73700; 80053; 83605; 85025; 87040; 96372; 99284; J1885; J2270

== ENCOUNTER 2022-04-30 19:34 | Emergency (ER) | payer MEDICAID ==
[~2022-04-30] VITALS: Ht 170.2 cm; Wt 97.5 kg
[~2022-04-30 19:34] MED LIST changes: +CEPH-588 PO
[2022-04-30 19:44] VITALS: BP 146/82
--- NOTE | 2022-04-30 20:38 | NUR ---
Dr. Andrews examining patient.
[2022-04-30] MEDS ORDERED: KETOROLAC 60 MG/2 ML VIAL IM ONE (20:45)
--- NOTE | 2022-04-30 22:06 | NUR ---
Patient returned back from X-ray.
[2022-04-30] MEDS ORDERED: NAPR-54 PO (22:47)
[2022-04-30] MEDS ORDERED: MORPHINE SULFATE 4 MG/ML SYR IM ONE (22:55)
[2022-04-30 23:19] VITALS: BP 142/82
--- NOTE | 2022-04-30 23:19 | NUR ---
Patient discharged with v/s stable. Written and verbal after care instructions given and explained by Dr. Andrews. Patient alert, oriented and verbalized understanding of instructions. Ambulatory with steady gait. All questions addressed prior to discharge. ID band removed. Patient advised to follow up with PMD. Rx of Naproxen given. Patient educated on indication of medication including possible reaction and side effects. Opportunity to ask questions provided and answered.
== END 2022-04-30 23:19 | disposition home or self-care (01) ==
LOC: MED 19:34
DX: S13.4XXA Sprain of ligaments of cervical spine, initial encounter (principal); S33.5XXA Sprain of ligaments of lumbar spine, initial encounter; V49.88XA Car occupant (driver) (passenger) injured in other specified transport accidents, initial encounter; Y93.89 Activity, other specified; Y92.89 Other specified places as the place of occurrence of the external cause; Y99.8 Other external cause status
CPT/HCPCS: 71045; 72050; 72110; 81025; 96372; 99284; J1885; J2270

== ENCOUNTER 2022-10-10 18:00 | Emergency (ER) | payer MEDICAID ==
[~2022-10-10] VITALS: Ht 170.2 cm; Wt 93.0 kg
[2022-10-10 18:34] VITALS: BP 149/99
--- NOTE | 2022-10-10 20:48 | NUR ---
SEEN AND EXAMINED ERMD
[2022-10-10] MEDS ORDERED: GABAPENTIN 300 MG CAP PO ONE (21:00)
[2022-10-10] MEDS ORDERED: predniSONE 20 MG TAB PO ONE (21:00)
[2022-10-10] MEDS ORDERED: LIDOCAINE 5% 1 EA PATCH TP SCH (21:00)
[2022-10-10] MEDS ORDERED: MORPHINE SULFATE 10 MG/ML VIAL IM ONE (21:00)
[2022-10-10] MEDS ORDERED: ONDANSETRON 4 MG ODT PO ONE (21:00)
--- NOTE | 2022-10-10 21:06 | NUR ---
PT TAKEN TO BED 6
--- NOTE | 2022-10-10 21:26 | NUR ---
PT RETURN FROM CT
[2022-10-10] MEDS ORDERED: GABAPENTIN 300 MG CAP ONE (22:03)
[2022-10-10] MEDS ORDERED: ONDANSETRON 4 MG ODT ONE (22:03)
[2022-10-10] MEDS ORDERED: predniSONE 20 MG TAB ONE (22:03)
[2022-10-10] MEDS ORDERED: MORPHINE SULFATE 10 MG/ML VIAL ONE (22:04)
[2022-10-10] MEDS ORDERED: HYDR-5080 PO (22:27)
[2022-10-10] MEDS ORDERED: ACET-10509 PO (22:27)
[2022-10-10] MEDS ORDERED: NAPR-54 PO (22:27)
[2022-10-10 23:36] VITALS: BP 132/77
--- NOTE | 2022-10-10 23:37 | NUR ---
Patient discharged with v/s stable. Written and verbal after care instructions given and explained. Picked up by friend to take home. Patient verbalized understanding. Ambulatory with steady gait. All questions addressed prior to discharge. Advised to follow up with PMD.
[2022-10-10] MEDS ORDERED: LID5T TP (23:53)
== END 2022-10-10 23:37 | disposition home or self-care (01) ==
LOC: MED 18:00
DX: M51.26 Other intervertebral disc displacement, lumbar region (principal); I10 Essential (primary) hypertension; Z79.899 Other long term (current) drug therapy
CPT/HCPCS: 72131; 96372; 99285; J2270; J7512; Q0162